=== PATIENT | female | born 1980 | race Caucasian/White ===

== ENCOUNTER 2020-02-14 07:16 | Outpatient (CLI) | payer OTHER, SELFPAY ==
[2020-02-14 07:32] LABS: Basophils Absolute Auto 0.06 K/mm3 (0.00-0.10); Eosinophils Absolute Auto 0.26 K/mm3 (0.02-0.50); Eosinophils Percent Auto 4.5 % (1.0-6.0); Hematocrit 42.2 % (35.0-49.0); Hemoglobin 14.9 g/dL (12.0-15.0); Immature Granulocyte Absolute 0.01 K/mm3 (0.00-0.00); Immature Granulocyte Percent A 0.2 % (0.0-0.0); Lymphocytes Absolute Auto 2.17 K/mm3 (1.10-4.50); Lymphocytes Percent Auto 37.7 % (18.0-42.0); Mean Corpuscular HGB Conc 35.3 g/dL (32.0-36.0); Mean Corpuscular Hemoglobin 32.2 pg (27.0-31.0); Mean Corpuscular Volume 91.1 fL (78.0-102.0); Mean Platelet Volume 11.2 fl (9.2-11.8); Monocytes Absolute Auto 0.36 K/mm3 (0.10-0.90); Monocytes Percent Auto 6.3 % (2.0-11.0); Neutrophils Absolute Auto 2.9 K/mm3 (1.7-7.2); Neutrophils Percent Auto 50.3 % (50.0-70.0); Platelet Count Result 204 K/mm3 (150-420); Red Blood Count 4.63 M/mm3 (4.20-5.40); Red Cell Distribution Width 11.4 % (11.6-14.4); White Blood Count 5.8 K/mm3 (4.8-10.8)
[2020-02-14 07:33] LABS: Add Urine Microscopic? YES; Appearance Urine Sl Cloudy (Clear); Bilirubin Urine Negative (Negative); Blood Urine Negative (Negative); Color Urine Yellow (Yellow); Glucose Urine UA Negative (Negative); Ketones Urine Negative (Negative); Leukocyte Esterase Ur Negative (Negative); Nitrate Urine Negative (Negative); Protein Urine Negative (Negative); Specific Grav Ur >= 1.030 (1.010-1.020); Urobilinogen Urine 0.2 mg/dL (0.2-1.0); pH Urine 5.5 (5.0-8.0)
[2020-02-14 07:40] LABS: RBC Urine None seen /hpf (0-2); Squamous Epithelial Cell Urine Many /hpf (Few); WBC Urine None seen /hpf (0-3)
[2020-02-14 07:41] LABS: Bacteria Urine 1+ /hpf
[2020-02-14 08:19] LABS: Alanine Aminotransferase 22 U/L (14-59); Albumin Level 4.1 g/dL (3.4-5.0); Alkaline Phosphatase 50 U/L (46-116); Anion Gap 10.9 mmol/L (7-16); Aspartate Amino Transferase 16 U/L (15-37); Bilirubin,Total 0.8 mg/dL (0.00-1.00); Blood Urea Nitrogen 12 mg/dL (7-18); Calcium 8.6 mg/dL (8.5-10.1); Carbon Dioxide 27 mmol/L (21-32); Chloride 104 mmol/L (98-108); Cholesterol 185 mg/dL (0-200); Estimated Glomerular Filt Rate > 60; Glucose 94 mg/dL (70-99); HDL Direct 36 mg/dL (40-60); LDL Cholesterol Calculated 109 mg/dL (<130); Osmolality Calculated 285 mOsm/kg (285-295); Potassium 3.9 mmol/L (3.5-5.1); Sodium 138 mmol/L (136-145); Thyroid Stimulating Hormone 0.69 uIU/mL (0.36-3.74); Triglycerides 199 mg/dL (0-150)
== END 2020-02-14 07:17 | disposition home or self-care (01) ==
LOC: CHSLAB 07:21
PROVIDERS: PCP Internal Medicine; Visit Provider Internal Medicine
DX: Z00.00 Encounter for general adult medical examination without abnormal findings (principal); I10 Essential (primary) hypertension; K21.9 Gastro-esophageal reflux disease without esophagitis
CPT/HCPCS: 36415; 80053; 80061; 81001; 84443; 85025

== ENCOUNTER 2020-06-02 11:00 | Outpatient (CLI) | payer OTHER, SELFPAY ==
[2020-06-03 14:03] LABS: SARS-CoV-2 RNA PCR Negative
== END 2020-06-02 11:01 | disposition home or self-care (01) ==
PROVIDERS: PCP Internal Medicine; Visit Provider Internal Medicine
DX: Z20.828 Contact with and (suspected) exposure to other viral communicable diseases (principal)
CPT/HCPCS: 87635; C9803; U0003

== ENCOUNTER 2020-07-14 14:50 | Outpatient (CLI) | payer OTHER, SELFPAY ==
[2020-07-14 15:33] LABS: SARS-CoV-2 Ag Negative (Negative)
== END 2020-07-14 14:51 | disposition home or self-care (01) ==
LOC: CHSLAB 14:52
PROVIDERS: PCP Internal Medicine; Visit Provider Internal Medicine
DX: Z20.828 Contact with and (suspected) exposure to other viral communicable diseases (principal)
CPT/HCPCS: 87426

== ENCOUNTER 2021-01-25 09:23 | Outpatient (CLI) | payer OTHER, SELFPAY ==
[2021-01-25 10:33] LABS: SARS-CoV-2 RNA PCR Negative (Negative)
== END 2021-01-25 09:24 | disposition home or self-care (01) ==
LOC: CHSLAB 09:25
PROVIDERS: PCP Internal Medicine; Visit Provider Internal Medicine
DX: Z20.822 Contact with and (suspected) exposure to COVID-19 (principal)
CPT/HCPCS: 87081; 87880; C9803; U0003; U0005

== ENCOUNTER 2021-08-16 10:03 | Outpatient (CLI) | payer OTHER, SELFPAY ==
[2021-08-16 10:49] LABS: SARS-CoV-2 Ag Positive (Negative)
== END 2021-08-16 10:04 | disposition home or self-care (01) ==
LOC: CHSLAB 10:07
PROVIDERS: PCP Internal Medicine; Visit Provider Internal Medicine
DX: U07.1 COVID-19 (principal); J06.9 Acute upper respiratory infection, unspecified
CPT/HCPCS: 87426; C9803

== ENCOUNTER 2023-02-03 07:44 | Outpatient (CLI) | payer OTHER, SELFPAY ==
[2023-02-03 08:43] LABS: Alanine Aminotransferase 22 U/L (14-59); Albumin Level 4.1 g/dL (3.4-5.0); Alkaline Phosphatase 49 U/L (46-116); Anion Gap 11 mmol/L (8-16); Bilirubin,Total 0.5 mg/dL (0.00-1.00); Blood Urea Nitrogen 17 mg/dL (7-18); Calcium 9.2 mg/dL (8.5-10.1); Carbon Dioxide 26 mmol/L (21-32); Chloride 102 mmol/L (98-108); Estimated Glomerular Filt Rate > 60; Free T3 2.38 pg/mL (2.18-3.98); Free T4 Free Thyroxine 0.75 ng/dL (0.76-1.46); Glucose 87 mg/dL (70-99); Osmolality Calculated 288 mOsm/kg (285-295); Potassium 4.3 mmol/L (3.5-5.1); Sodium 139 mmol/L (136-145); Thyroid Stimulating Hormone 0.77 uIU/mL (0.36-3.74)
[2023-02-03 08:51] LABS: Aspartate Amino Transferase 17 U/L (15-37)
== END 2023-02-03 07:45 | disposition home or self-care (01) ==
LOC: CHSLAB 07:47
PROVIDERS: PCP Internal Medicine; Visit Provider Internal Medicine
DX: E03.9 Hypothyroidism, unspecified (principal)
CPT/HCPCS: 36415; 80053; 84439; 84443; 84481

== ENCOUNTER 2023-06-05 09:01 | Outpatient (CLI) | payer OTHER, SELFPAY ==
--- NOTE | ~2023-06-05 | XR_ITS ---
EXAMINATION: XR elbow RT min 3V DATE: 06/05/2023 09:15 INDICATION: Right elbow pain and stiffness TECHNIQUE: Anteroposterior, two oblique and lateral views of the right elbow were obtained. COMPARISON: None. FINDINGS: Alignment is normal. No fracture or joint effusion. Joint spaces are normal. Soft tissues are unremar kable. IMPRESSION: 1. Negative right elbow radiographs. Reviewed, dictated and finalized at location A. 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
== END 2023-06-05 09:02 | disposition home or self-care (01) ==
PROVIDERS: PCP Internal Medicine; Visit Provider Internal Medicine
DX: M25.521 Pain in right elbow (principal)
CPT/HCPCS: 73080

== ENCOUNTER 2023-06-11 16:25 | Outpatient (RCR) | payer OTHER, SELFPAY ==
--- NOTE | 2023-06-12 10:35 | BUOTOPEVAL ---
Assessment and note entered by Sarah Horn OT Evaluation Information Assessment Status Evaluation Diagnosis R elbow pain Onset June 2022 Subjective Information The patient reports pain at 0/10 at rest and can get up to 10/10 pain in lateral forearm during activity including lifting anything with outstretched arm. The patient reports that the pain is burning and will then ache at night. The patient reports that she thinks that the pain is not in her elbow but in posterior lateral forearm and thinks that there could be some soft tissue damage. Reported Pain Level Pain Score 0: Self Report Assessment OT Clinical Summary The patient is a 42 year old female who was referred to outpatient OT due to R elbow pain resulting in difficulty perform daily tasks. 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 The patient requires skilled OT to address these symptoms and improve independence with daily tasks. Plan of Care Interventions Therapeutic Exercise,Manual Therapy,Neuro Re- education,Therapeutic Activities,Hot Pack/Cold Pack,Electrical Stimulation,Self-Care/Home Management,Prosthetic Training,Ultrasound OT Services Indicated Yes Treatment Frequency and 2x/week for 10 visits. Duration These treatments will address the objective and functional deficits as defined above. The patient will be advanced safely and appropriately in order for the patient to progress towards his/her prior level of function. Additional exercises will be introduced and as well as a comprehensive home exercise program upon discharge, if needed, ?to ensure carryover of functional gains achieved in the clinic. This treatment plan has been reviewed and agreement upon by the patient.
--- NOTE | 2023-06-26 14:54 | BUOTOPEVAL ---
Assessment and note entered by Sarah Horn, OT Evaluation Information Assessment Status Progress Diagnosis R elbow pain Onset June 2022 Subjective Information The patient reports that her R elbow has not made any progress and her pain continues to be just as severe as before starting therapy. She stated she has been trying to do her exercises and stretches and that they do not cause pain, the only time she has pain is when force is presented onto the arm by pushing, pulling, gripping/lifting. The patient stated that in any position that she sleeps in she will have pain following and have to pop her elbow. The patient reports severe pain during grabbing things out of the cabinets, putting on a sweatshirt, and picking something up where force goes into arm. The patient stated she is willing to continue therapy if it will help but wants to know what the problem is so that she can stop feeling pain. The patient reports that she has tried using a compression brace and performing ice massage at home with no relief with burning sensation. Reported Pain Level Pain Score 0: Self Report Pain Score 0: Self Report Pain Score 0: Self Report Pain Score 0: Self Report Pain Score 0: Self Report Additional Pain Score Comments The patient reports no pain at rest but 10/10 pain during any use of UE. Additional Pain Score Comments Pt. has no c/o pain at rest. Assessment OT Clinical Summary The patient has not made progress in UE pain and burning sensation due to limited progress as therapeutic techniques have not improved pain, medical condition could be affecting current pain symptoms with being undiagnosed at this time. The patient made decline in bit tripoler strength due to pain in forearm, the patient has a difficult time performing ADLs and work tasks such as putting away dishes. The patient made progress in UE strength which affects her ability to engage in daily tasks but due to pain during resistive activities or grasping, the patient continues to demonstrate significant pain and UE dysfunction. The patient to follow up with MD to determine next treatment plan and if she should continue to engage in OT. The patient's pain and burning sensation continues t
== END 2023-06-25 20:00 | disposition home or self-care (01) ==
LOC: CHSOT 16:25
PROVIDERS: PCP Internal Medicine; Visit Provider Internal Medicine
DX: M25.521 Pain in right elbow (principal)
CPT/HCPCS: 97014; 97110; 97140; 97165; 97530; G0283

== ENCOUNTER 2023-07-28 10:03 | Outpatient (CLI) | payer OTHER, SELFPAY ==
--- NOTE | ~2023-07-28 | MR_ITS ---
MRI of the right elbow CLINICAL HISTORY: Pain TECHNIQUE: Proton-density and proton-density fat-sat images were acquired in the axial, coronal, and sagittal planes. FINDINGS: Ulnar collateral ligament is intact. Radial collateral ligament and the lateral ulnar colla teral ligament are intact. There is mild tendinosis and possible minimal low-grade partial tearing at the common extensor tendon origin at the lateral epicondyle of the humerus. Common flexor tendon sarah gin is unremarkable. Bone marrow signals are unremarkable. No significant osseous or articular abnormality of the elbow dejah int. No joint effusion. Biceps, brachialis, and triceps tendons are intact. Visualized muscle bellies are normal in signal. N o soft tissue mass or fluid collection seen. IMPRESSION: Mild lateral epicondylitis, as detailed above. Reviewed, dictated and finalized at location M. . 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
--- NOTE | ~2023-07-28 | MR_ITS ---
MRI of the cervical spine Clinical History: Radiculopathy Technique: Axial T2-weighted and gradient images, and sagittal T1-weighted, T2-weighted, and STIR jose e ges were acquired. Findings: There is no fracture or subluxation of the cervical spine. Vertebral bodies maintain normal height and alignment. No suspicious bone marrow signal abnormality seen. No significant disc bulge or herniation seen at any cervical level. No spinal canal stenosis, cord co mpression, or neural foraminal narrowing identified. No epidural mass or collection seen. No abnormal signal seen in the spinal cord. Paravertebral soft tissues are unremarkable. Impression: Unremarkable exam. Reviewed, dictated and finalized at location . 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
== END 2023-07-28 10:04 | disposition home or self-care (01) ==
LOC: CHSIMG 10:18
PROVIDERS: PCP Internal Medicine; Visit Provider Internal Medicine
DX: M25.521 Pain in right elbow (principal); M54.12 Radiculopathy, cervical region; M77.11 Lateral epicondylitis, right elbow
CPT/HCPCS: 72141; 73221

== ENCOUNTER 2024-09-05 16:04 | Outpatient (CLI) | payer OTHER, SELFPAY ==
--- NOTE | ~2024-09-05 | MR_ITS ---
EXAMINATION: MR elbow RT wo con DATE: 09/05/2024 16:40 INDICATION: Lateral epicondylitis at the right elbow TECHNIQUE: Magnetic resonance imaging (MRI) of the right elbow was performed without intravenous cont rast. Sequences included coronal, axial, and sagittal PD-weighted FS FSE and coronal, axial, and sagi ttal PD-weighted FSE. COMPARISON: 07/28/2023 FINDINGS: Osseous/other: Normal alignment. Normal marrow signal with no marrow edema, fracture, osteochondral lesion or abnor mal marrow replacing process. Tendons: Triceps, biceps brachii and brachialis tendons are normal. Common flexor tendon wad is normal. Mild tendinopathy without discrete tear at the lateral epicondylar origin of the common extensor tendon wa d. Minimal surrounding soft tissue edema consistent with mild lateral epicondylitis. Ligaments: The medial and lateral collateral ligament complexes are normal. Cubital tunnel: Cubital tunnel is unremarkable with normal signal and caliber of the ulnar nerve. Fluid: Physiologic amount of fluid the elbow joint. IMPRESSION: 1. Persistent mild lateral epicondylitis with mild tendinopathy without tear of the common extensor t endon wad. Reviewed, dictated and finalized at location A. GER OF APPLICATION DEVELOPMENT IMPRESSION: 1. Persistent mild lateral epicondylitis with mild tendinopathy without tear of the common extensor tendon wad.
== END 2024-09-05 16:05 | disposition home or self-care (01) ==
LOC: MICIMG 16:05
PROVIDERS: PCP Internal Medicine; Visit Provider Orthopaedic Surgery
DX: M77.11 Lateral epicondylitis, right elbow (principal)
CPT/HCPCS: 73221

== ENCOUNTER 2024-10-16 11:02 | Outpatient (RCR) | payer OTHER, SELFPAY ==
--- NOTE | 2024-10-16 11:52 | OPREHPOC ---
Outpatient Therapy Plan of Care This is a Multidisciplinary Plan of Care that may contain components documented by all disciplines (PT, OT, and ST.) PT Problem 1 PT Problem #1 Knowledge Deficit PT Goal 1 Goal / Goal Update The patient will be independent in a home exercise program. Target Visit 8 PT Problem 2 PT Problem #2 Pain PT Goal 1 Goal / Goal Update The patient will report no greater than 2/10 right elbow pain with progression to AROM and strengthening. Target Visit 12 PT Goal 2 Goal / Goal Update The patient will report no greater than 1/10 right elbow pain with lifting activities. Target Visit 18 PT Problem 3 PT Problem #3 Impaired Range of Motion PT Goal 1 Goal / Goal Update The patient will demonstrate right elbow AROM of 0 -140 degrees. The patient will demonstrate right supination and pronation AROM of 75 degrees. Target Visit 12 PT Problem 4 PT Problem #4 Impaired Strength PT Goal 1 Goal / Goal Update The patient will demonstrate 5/5 right elbow, forearm, and wrist strength to perform daily tasks and lifting. Target Visit 18
--- NOTE | 2024-10-16 11:54 | PTOPEVAL1 ---
Assessment and note entered by Yoko Najera, PT Evaluation Information Assessment Status Evaluation Diagnosis s/p R lateral epicondylar debridement and repair ICD-10 Condition Codes (PT) Pain in right elbow M25.521,Encounter for other orthopedic aftercare Z47.89 Onset 10/02/24 Subjective Information Alexandrea Guzman reports she had right elbow surgery on 10/02/24. She had tennis elbow and a torn tendon . She tried PT and 4 injections without relief prior to surgery. She is in a brace locked at 90 degrees for 3 weeks. She is noting a little mild soreness in the right elbow. She notes difficulty with bathing and grooming due to inability to use her right UE which is her dominant arm. Reported Pain Level Pain Score 0: Self Report Assessment PT Clinical Summary Alexandrea Guzman presents 2 weeks s/p right lateral epicondylar debridement and tendon repair. She has restrictions of passive range only for the right UE. 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 She objectively demonstrates decreased right elbow PROM. Right UE AROM and strength were not tested today due to post op precautions but they are likely decreased as well. She will benefit from skilled PT to address these limitations. Plan of Care Interventions Electrical Stimulation,Hot Pack/Cold Pack,Manual Therapy,Patient/Caregiver Education,Therapeutic Activities,Therapeutic Exercise PT Services Indicated Yes Treatment Frequency and 2 times a week for 12 visits Duration These treatments will address the objective and functional deficits as defined above. The patient will be advanced safely and appropriately in order for the patient to progress towards his/her prior level of function. Additional exercises will be introduced and as well as a comprehensive home exercise program upon discharge, if needed, ?to ensure carryover of functional gains achieved in the clinic. This treatment plan has been reviewed and agreement upon by the patient.
--- NOTE | 2024-11-04 11:52 | PTOPPROG ---
Assessment and note entered by Yoko Najera, PT Evaluation Information Assessment Status Progress Diagnosis s/p R lateral epicondylar debridement and repair ICD-10 Condition Codes (PT) Pain in right elbow M25.521,Encounter for other orthopedic aftercare Z47.89 Onset 10/02/24 Subjective Information Alexandrea Guzman reports her right elbow is doing good. She is not having pain in it but does note tightness and soreness. She is still in her brace and not using the right UE. Assessment PT Clinical Summary Alexandrea Guzman has completed 6 skilled PT visits following a right lateral epicondylar debridement and repair. She is reporting no pain in the right elbow and is wearing her brace at all times and does not use the right UE. She does report tightness in the right elbow. She demonstrates improved right elbow, forearm, and wrist PROM. She has not been able to perform AAROM, AROM, or strength due to post op precautions. She will continue to benefit from skilled PT to progress to AAROM, AROM, and strength when released by surgeon. Plan of Care Interventions Patient/Caregiver Education,Therapeutic Exercise PT Services Indicated Yes Treatment Frequency and 2 times a week for 12 additional visits Duration These treatments will address the objective and functional deficits as defined above. The patient will be advanced safely and appropriately in order for the patient to progress towards his/her prior level of function. Additional exercises will be introduced and as well as a comprehensive home exercise program upon discharge, if needed, ?to ensure carryover of functional gains achieved in the clinic. This treatment plan has been reviewed and agreement upon by the patient.
--- NOTE | 2024-11-25 11:38 | OPREHPOC ---
Outpatient Therapy Plan of Care This is a Multidisciplinary Plan of Care that may contain components documented by all disciplines (PT, OT, and ST.) PT Problem 1 PT Problem #1 Knowledge Deficit PT Goal 1 Goal / Goal Update The patient will be independent in a home exercise program. Target Visit 8 Progress Not Met PT Goal 2 Goal / Goal Update Continue PT Problem 2 PT Problem #2 Pain PT Goal 1 Goal / Goal Update The patient will report no greater than 2/10 right elbow pain with progression to AROM and strengthening. Target Visit 12 Progress Met PT Goal 2 Goal / Goal Update The patient will report no greater than 1/10 right elbow pain with lifting activities. continue Target Visit 18 Progress Not Met PT Problem 3 PT Problem #3 Impaired Range of Motion PT Goal 1 Goal / Goal Update The patient will demonstrate right elbow AROM of 0 -140 degrees. The patient will demonstrate right supination and pronation AROM of 75 degrees. Target Visit 12 Progress Partially Met PT Goal 2 Goal / Goal Update continue PT Problem 4 PT Problem #4 Impaired Strength PT Goal 1 Goal / Goal Update The patient will demonstrate 5/5 right elbow, forearm, and wrist strength to perform daily tasks and lifting. Target Visit 18 Progress Not Met PT Goal 2 Goal / Goal Update continue
--- NOTE | 2024-11-25 11:38 | PTOPPROG ---
Assessment and note entered by Yoko Najera, PT Evaluation Information Assessment Status Progress Diagnosis s/p R lateral epicondylar debridement and repair ICD-10 Condition Codes (PT) Pain in right elbow M25.521,Encounter for other orthopedic aftercare Z47.89 Onset 10/02/24 Subjective Information Alexandrea Guzman reports her right elbow is doing well. She is not having pain just stiffness. She is taking her brace off to shower now and uses the right arm to wash and groom her hair. She is not lifting anything with the right arm and is in her brace when she is at work and moving around in her home. Assessment PT Clinical Summary Alexandrea Guzman has completed 12 skilled PT visits following a right lateral epicondylar debridement and repair. She is reporting no pain in the right elbow and has began to use the right arm when washing and grooming her hair. She is not lifting anything with the right arm and is wearing her brace when working and around the house. She does report tightness in the right elbow. She demonstrates improved right elbow, forearm, and wrist AROM and PROM. She has not been able to perform strengthening due to post op precautions. She will continue to benefit from skilled PT to progress to strengthening when released by her surgeon. Plan of Care Interventions Patient/Caregiver Education,Therapeutic Exercise PT Services Indicated Yes Treatment Frequency and 2 times a week for 6 additional visits Duration These treatments will address the objective and functional deficits as defined above. The patient will be advanced safely and appropriately in order for the patient to progress towards his/her prior level of function. Additional exercises will be introduced and as well as a comprehensive home exercise program upon discharge, if needed, ?to ensure carryover of functional gains achieved in the clinic. This treatment plan has been reviewed and agreement upon by the patient.
--- NOTE | 2024-12-18 13:26 | OPREHPOC ---
Outpatient Therapy Plan of Care This is a Multidisciplinary Plan of Care that may contain components documented by all disciplines (PT, OT, and ST.) PT Problem 1 PT Problem #1 Knowledge Deficit PT Goal 1 Goal / Goal Update The patient will be independent in a home exercise program. Target Visit 8 Progress Not Met PT Goal 2 Goal / Goal Update Continue Progress Met PT Problem 2 PT Problem #2 Pain PT Goal 1 Goal / Goal Update The patient will report no greater than 2/10 right elbow pain with progression to AROM and strengthening. Target Visit 12 Progress Met PT Goal 2 Goal / Goal Update The patient will report no greater than 1/10 right elbow pain with lifting activities. continue Target Visit 18 Progress Met PT Problem 3 PT Problem #3 Impaired Range of Motion PT Goal 1 Goal / Goal Update The patient will demonstrate right elbow AROM of 0 -140 degrees. The patient will demonstrate right supination and pronation AROM of 75 degrees. Target Visit 12 Progress Partially Met PT Goal 2 Goal / Goal Update continue Progress Met PT Problem 4 PT Problem #4 Impaired Strength PT Goal 1 Goal / Goal Update The patient will demonstrate 5/5 right elbow, forearm, and wrist strength to perform daily tasks and lifting. Target Visit 18 Progress Not Met PT Goal 2 Goal / Goal Update continue Progress Met
--- NOTE | 2024-12-18 13:27 | PTOPPROG ---
Assessment and note entered by Yoko Najera, PT Evaluation Information Assessment Status Progress Diagnosis s/p R lateral epicondylar debridement and repair ICD-10 Condition Codes (PT) Pain in right elbow M25.521,Encounter for other orthopedic aftercare Z47.89 Onset 10/02/24 Subjective Information Alexandrea Guzman reports her right elbow is doing well overall. She is still noticing stiffness in the bicep muscle especially after sleeping. She has been able to return to previous ADLs though including loosening lids on cups, lifting dishes into overhead cabinets, driving, and writing without difficulty. She has been using her putty at home and stretching. Assessment PT Clinical Summary Alexandrea Guzman has completed 12 skilled PT visits following a right lateral epicondylar debridement and repair. She is reporting no pain in the right elbow and has began to use the right arm when washing and grooming her hair. She is not lifting anything with the right arm and is wearing her brace when working and around the house. She does report tightness in the right elbow. She demonstrates improved right elbow, forearm, and wrist AROM and PROM. She has not been able to perform strengthening due to post op precautions. She will continue to benefit from skilled PT to progress to strengthening when released by her surgeon. Plan of Care Interventions Patient/Caregiver Education,Therapeutic Exercise PT Services Indicated No Treatment Frequency and Discharge unless new orders received Duration These treatments will address the objective and functional deficits as defined above. The patient will be advanced safely and appropriately in order for the patient to progress towards his/her prior level of function. Additional exercises will be introduced and as well as a comprehensive home exercise program upon discharge, if needed, ?to ensure carryover of functional gains achieved in the clinic. This treatment plan has been reviewed and agreement upon by the patient.
--- NOTE | 2025-02-11 15:37 | PCPTNOTE ---
The patient was last seen in the clinic on 12/18/24 and saw her referring physician on 12/24/24. No additional orders received and she is discharged. -Yoko Najera, PT
== END 2025-01-14 23:59 | disposition home or self-care (01) ==
LOC: CHSPT 11:02
DX: M25.521 Pain in right elbow (principal)
CPT/HCPCS: 97110; 97140; 97150; 97161; 97530

== ENCOUNTER 2025-07-13 09:37 | Outpatient (CLI) | payer OTHER, SELFPAY ==
--- OUTSIDE RECORDS SUMMARY | 2025-07-13 09:56 | XMS_ITS | Clinical Summary ---
Author Organization [facility] Address [facility] [place] [address] Care Team Providers Care Vaccine Key Customer Leader Name Role Phone Jose Nelson MD Primary Care Provider [phone] Allergies No known active allergies Medications escitalopram (LEXAPRO) 20 mg tablet Take 1 tablet (20 mg total) by mouth daily 08/29/2024 Active valACYclovir (VALTREX) 1 gram tablet TAKE TWO TABLETS BY MOUTH EVERY TWELVE HOURS 09/01/2024 Active omeprazole (PriLOSEC) 20 mg capsule Take 1 capsule (20 mg total) by mouth daily Active spironolactone (ALDACTONE) 25 mg tablet Take 1 tablet (25 mg total) by mouth daily Active lysine 1,000 mg tablet Take by mouth Active verapamil SR (CALAN SR) 180 mg CR tablet Take 1 tablet (180 mg total) by mouth nightly 08/29/2024 Active traMADoL (ULTRAM) 50 mg tablet Take 1 tablet (50 mg total) by mouth every 6 (six) hours as needed for pain 15 tablet 10/02/2024 Active Active Problems Problem Noted Date Diagnosed Date Right elbow pain 09/22/2024 Lateral epicondylitis of right elbow 09/22/2024 Right lateral epicondylitis 09/22/2024 Surgical History Surgery Date Site/Laterality Comments CHOLECYSTECTOMY 07/16/2015 - 07/15/2016 HYSTERECTOMY 07/16/2020 - 07/15/2021 TUBAL LIGATION 07/16/2016 - 07/15/2017 ELBOW SURGERY 10/02/2024 Right EPICONDYLAR JOB Medical History Medical History Date Comments Hypertension PONV (postoperative nausea and vomiting) Acid reflux Anxiety Family History Medical History Relation Name Comments Diabetes Mother Heart disease Mother Relation Name Status Comments Mother Social History Tobacco Use Types Packs/Day Years Used Date Smoking Tobacco: Former Cigarettes Tobacco Cessation:Counseling Given: Not Answered AUDIT-C Answer Date Recorded Q1: How often do you have a drink containing alc ohol? 2-4 times a month 09/22/2024 Q2: How many drinks containi ng alcohol do you have on a typical day when you are drinking? 7 to 9 09/22/2024 Q3: How often do you have si x or more drinks on one occasion? Weekly 09/22/2024 Personal Safety Answer Date Recorded Have you ever been in or are you currently in a harmful physical or emotional relationship or is someone making you feel afraid or unsafe? 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 Gender Identity Not on file Sexual Orientation Not on file Last Filed Vital Signs Vital Sign Reading Time Taken Comments Blood Pressure 114/87 10/02/2024 12:00 PM CDT Pulse 68 10/02/2024 12:00 PM CDT Temperature 36.4 C (97.6 F) 10/02/2024 11:25 AM CDT Respiratory Rate 21 10/02/2024 11:3 0 AM CDT Oxygen Saturation 95% 10/02/2024 12: 00 PM CDT Inhaled Oxygen Concentration - - Weight 96.5 kg (212 lb 11.2 oz) 10/02/2024 9:09 AM CDT Height 154.9 cm (5' 1) 10/02/2024 9:09 AM CDT Body Mass Index 40.19 10/02/2024 9:09 AM CDT Plan of Treatment Health Maintenance Due Date Last Done Comments Breast Cancer Screening-Mammogram 1979 Colon Cancer Screening-Colonoscopy 1979 Depression Screening 1979 Hepatitis C Screening 1979 Varicella Vaccines (1 of 2 - 13+ 2-dose series) 12/12/1992 Regular Well Visit/Exam 18-64 12/12/1997 HPV Vaccines (1 - 3-dose SCDM series) 12/12/2006 Covid-19 Vaccine ( season) 2025 07/22/2021, 08/14/2020, 07/17/2020 Influenza Vaccine (#1) 2025 05/31/2016, 2015 DTaP/Tdap/Td Vaccine (8 - Td or Tdap) 09/23/2025 09/24/2015, 11/12/2012, 04/20/1995, Additional history exists Hepatitis B Screening Completed 07/07/2013 , 02/04/2013, 11/12/2012 Pneumococcal vaccine <65 Aged Out No longer eligible based on patient's age to complete this topic Insurance [facility] [id number] Care Teams Vaccine Key Customer Leader Relationship Specialty Start Date End Date Jose Nelson MD [address] [place], [place] [id number] PCP - General Internal Medicine 09/22/24
--- OUTSIDE RECORDS SUMMARY | 2025-07-13 09:56 | XMS_ITS | Clinical Summary ---
Author Organization [facility] lin Address [address] [place] [address] Care Team Providers Care Insurance Account Representative Name Role Phone Unavailable Primary Care Provider Unavailabl e Social History Tobacco Use Types Packs/Day Years Used Date Smoking Tobacco: Never Assessed Comments Unknown Sex and Gender Information Value Date Recorded Sex Assigned at Not on file Legal Sex Female 2:15 PM EST Gender Identity Not on file Sexual Orientation Not on file Plan of Treatment Not on file Medical Devices Not on file
[2025-07-13 09:59] LABS: Hematocrit 40.3 % (35.0-49.0); Hemoglobin 13.7 g/dL (12.0-15.0); Mean Corpuscular HGB Conc 34.0 g/dL (32-36); Mean Corpuscular Hemoglobin 31.4 pg (27.0-31.0); Mean Corpuscular Volume 92.2 fL (78.0-102.0); Platelet Count Result 221 K/mm3 (150-420); Red Blood Count 4.37 M/mm3 (4.20-5.40); White Blood Count 4.9 K/mm3 (4.8-10.8)
[2025-07-13 10:00] LABS: Add Urine Microscopic? YES; Appearance Urine Clear (Clear); Glucose Urine UA Negative (Negative); Leukocyte Esterase Ur Negative (Negative); Nitrate Urine Negative (Negative); Specific Grav Ur >= 1.030 (1.010-1.020)
[2025-07-13 10:23] LABS: Alanine Aminotransferase 20 U/L (6-35); Albumin Level 4.7 g/dL (3.5-5.1); Alkaline Phosphatase 45 U/L (38-126); Anion Gap 10 mmol/L (4-12); Aspartate Amino Transferase 26 U/L (14-36); Bilirubin,Total 0.6 mg/dL (0.2-1.3); Blood Urea Nitrogen 12 mg/dL (7-17); Calcium 9.4 mg/dL (8.4-10.2); Carbon Dioxide 25 mmol/L (22-30); Chloride 109 mmol/L (98-107); Cholesterol 222 mg/dL (0-200); Estimated Glomerular Filt Rate > 60; Glucose 89 mg/dL (65-110); HDL Direct 56 mg/dL; Osmolality Calculated 296 mOsm/kg (285-295); Potassium 4.2 mmol/L (3.4-5.0); Sodium 144 mmol/L (137-145); Total Protein 7.1 g/dL (6.3-8.2); Triglycerides 252 mg/dL (<150)
[2025-07-13 10:54] LABS: Thyroid Stimulating Hormone 2.740 uIU/mL (0.465-4.680)
== END 2025-07-13 09:38 | disposition home or self-care (01) ==
LOC: CHSLAB 09:39
PROVIDERS: PCP Internal Medicine; Visit Provider Internal Medicine
DX: Z00.00 Encounter for general adult medical examination without abnormal findings (principal); I10 Essential (primary) hypertension
CPT/HCPCS: 36415; 80053; 80061; 81001; 84443; 85027